=== PATIENT | male | born 1955 | race Caucasian/White ===

== ENCOUNTER 2016-10-30 05:17 | Inpatient (IN) | payer BC ==
[2016-10-22 17:31] LABS: HEMATOCRIT 37.2 % (40.0-51.0); HEMOGLOBIN 12.5 g/dL (13.6-17.8)
[2016-10-22 17:42] LABS: CALCIUM, SERUM 8.8 MG/DL (8.5-10.4); CHLORIDE, SERUM 103 MMOL/L (96-112); CO2 (CARBON DIOXIDE) 26 MMOL/L (24-34); CREATININE 1.08 MG/DL (0.70-1.30); GFR AFRICAN AMERICAN 86 ML/MIN (>=60); GFR NON AFRICAN AMERICAN 74 ML/MIN (>=60); GLUCOSE, SERUM 107 MG/DL (60-99); POTASSIUM, SERUM 3.6 MMOL/L (3.5-5.3); SODIUM, SERUM 137 MMOL/L (135-148)
[2016-10-22 17:44] LABS: BUN (BLOOD UREA NITROGEN) 26 MG/DL (6-23)
[2016-10-22 18:01] LABS: ASCORBIC ACID (UR NOT ORDER) NEG (NEG); BILIRUBIN, URINE NEGATIVE (NEG); KETONE, URINE NEGATIVE (NEG); LEUKOCYTE ESTERASE(NOT OR TRACE (NEG); WBC (NOT ORDERED) (RFLEX) 11 (0-5)
--- NOTE | ~2016-10-30 | OP ---
Record Of Operation [facility] [address] [place]. [address] NAME: MOHAMUD ANTON : 57 STATUS : DIS IN PAT#: [id number] AGE: 61 ADM/REG DATE : 10/30/16 MR#: [id number] REPORT SERV DATE: 11/02/16 DICTATED BY: REILLY VERDE DATE: 10/31/16 REPORT STATUS : Draft TRANSCRIBED BY: MODL DATE: 10/31/16 DATE OF PROCEDURE: 10/30/2016 TITLE OF OPERATION: 1. Cystourethroscopy with removal of right ureteral stent. 2. Placement of 6 x 26 right ureteral stent. 3. Laparoscopic extensive lysis of adhesions. 4. Robotic extensive right ureterolysis. 5. Robotic removal of right ureteral stent. 6. Robotic psoas hitch and ureteral reimplantation with placement of 6 x 22 right ureteral stent. 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 INDICATIONS: Mr. Anton is a 61-year-old male with right hydronephrosis. He had a history of aortobifemoral grafts for vascular disease. The hydronephrosis is symptomatic, and he has a stent placed. He is here for relief of his obstruction of his right kidney. ANESTHESIA: General. COMPLICATIONS: None. IMPLANTS: 1. 16-Burundian Ralph catheter. 2. 6 x 22 right ureteral stent. 3. #10 YORDAN drain. SPECIMENS: None. NARRATIVE: The patient was brought to the operating room, identified by his wristband. General anesthesia was induced, and Ancef was given for preoperative antibiotics. He was placed in the dorsal lithotomy position and prepped and draped in sterile fashion. A 22- Burundian cystoscope was placed into his urethra and into his bladder. A 6 x 26 ureteral stent was seen emanating from his right ureteral orifice. It was grasped with a flexible grasper and removed. Next, a fresh 6 x 26 ureteral stent was placed into his right ureter under standard conditions over a Sensor wire, the proximal coil was in the renal pelvis, the distal coil was in the bladder. The scope was removed. A 16-Burundian Ralph catheter was placed into the bladder under sterile conditions. The patient was then unprepped and undraped. He was then re-prepped and redraped in sterile fashion. His abdomen was then insufflated to a pressure of 15 mmHg using a Veress needle. A 5 mm port was placed in the left upper quadrant under direct vision. The abdomen was inspected. There were extensive omental adhesions over the midline incision, through which he had his aortobifem graft. An 8 mm port was placed into the left upper quadrant as well for a second robotic port, and the 5 mm port was exchanged for an 8 mm port under direct vision. Next, using a camera and Record Of Operation [place] [id number] [facility] [place]. [address] NAME: MOHAMUD ANTON : 57 STATUS : DIS IN PAT#: [id number] AGE: 61 ADM/REG DATE : 10/30/16 MR#: [id number] REPORT SERV DATE: 11/02/16 DICTATED BY: REILLY VERDE DATE: 10/31/16 REPORT STATUS : Draft TRANSCRIBED BY: MARK DATE: 10/31/16 laparoscopic scissors, extensive lysis of adhesions was performed to relieve the omental adhesions on the midline and right side of the body. Once all of the adhesions had been taken down, which took approximately an hour, an 8 mm port was placed in the right upper quadrant for the third robotic port. An 8 mm port was placed in a supraumbilical position for the final robotic port. A 12 mm port was placed in the right lower quadrant as an administrative assistant data entry port. The patient was then placed in Trendelenburg, and the robot was docked. At this point, I mobilized the right colon off the sidewall on the white line of Toldt, exposing the retroperitoneum. The colon was reflected medially. Eventually, the ureter was seen coursing down medially and beneath a vascular graft. The normal course of the ureter was then identified distal to the graft. The ureter was identified and marked with a vessel loop on both sides of the graft. A very meticulous ureterolysis was then performed. The ureter was literally on top of one vascular graft and beneath another. This portion of the operation took several hours as there was high risk for injury to the vascular graft. Once the ureter had been maximally mobilized, it was determined that the ureter could not be freed from beneath the vascular graft. The ureter was transected on both sides, and each piece of the ureter was oversewn with a 4-0 Prolene suture on both sides. At this time, the ureter seemed too short to perform our primary reanastomosis. I also did not like the idea of having a ureteral anastomosis right below the vascular graft. At this time, I decided to perform a robotic psoas hitch and ureteral reimplantation. The bladder was dropped off the anterior abdominal wall with electrocautery. The peritoneal reflections of the bladder were taken down to the pedicles bilaterally. The bladder was then hitched to the right psoas muscle as there was no good psoas tendon with a 2-0 V-Loc suture in a running fashion. The ureter was fairly short as the transection site was at the pelvic brim. I was able to bring it to a suitable location for reimplantation. Peritoneal attachments of the bladder were left on the bladder and these were placed in between the anastomosis and the vascular graft to prevent any sort of urinary extravasation from injuring the graft. Next, the bladder was inflated with 300 mL of sterile water. A perpendicular cystotomy was made. The middle point of the cystotomy was then brought to the spatulated portion of the ureter with a 4-0 V Loc suture. The ureter was then reanastomosed to the bladder with two running 4-0 V-Loc sutures. A 6 x 22 ureteral stent was placed into the ureter, this was pushed up to the bladder robotically, and the distal coil was pushed into the bladder. Once the anastomosis had been complete, the remaining cystotomy was closed perpendicular to this initial orientation in two layers, the first layer with a 3-0 V-Loc was a mucosal layer, the second layer was a seromuscular layer using a 2-0 V-Loc. The bladder was then irrigated with 300 mL of sterile water, and there was no extravasation or leakage of fluid from the anastomosis. At this time, the robot was undocked. The administrative assistant data entry port was closed with a 0 Vicryl suture using Chun-Roney device. The robotic ports were sequentially removed. There were no specimens. The wounds were irrigated clear. The subcutaneous tissues were closed with a 3-0 Vicryl suture. The skin was closed with 4-0 Monocryl suture. Dermabond dressing was placed. A 16-Burundian Ralph catheter was placed. A #10 YORDAN drain was placed through the left lateral robotic port and sutured in place with a 2-0 silk suture. A TAP block was placed preoperatively. The patient was awoken from anesthesia and transferred to the recovery room in stable condition. There were no complications. [facility]/MODL Record Of Operation [place] [id number] [facility] [address] [place]. [address] NAME: MOHAMUD ANTON : 57 STATUS : DIS IN PAT#: [id number] AGE: 61 ADM/REG DATE : 10/30/16 MR#: [id number] REPORT SERV DATE: 11/02/16 DICTATED BY: REILLY VERDE DATE: 10/31/16 REPORT STATUS : Draft TRANSCRIBED BY: MODRene DATE: 10/31/16 Reilly Verde MD / [id number] CC: MD Danielle Cavazos M.D.
[~2016-10-30 05:17] MED LIST: ASAB PO; COQ-10200 MG PO; FLOMAX4 PO; LIPITOR20 PO; MUCINEX1200 MG PO; PAX20 PO; PRIN20 PO; PROSCAR5 PO
[2016-10-30 13:23] LABS: BASOPHILS 0.2 %; BASOPHILS ABSOLUTE 0.02 10/3/uL (0.0-0.16); EOSINOPHILS 0.1 %; EOSINOPHILS ABSOLUTE 0.01 10/3/uL (0.0-0.53); HEMATOCRIT 33.6 % (40.0-51.0); HEMOGLOBIN 11.3 g/dL (13.6-17.8); IMMATURE GRANULOCYTES 0.2 %; IMMATURE GRANULOCYTES ABSOLUTE 0.03 10/3/uL (0.0-0.11); LYMPHOCYTES 5.3 %; LYMPHOCYTES ABSOLUTE 0.68 10/3/uL (0.67-4.30); MANUAL DIFF NO %; MEAN CORPUS HGB CONC 33.6 g/dL (32.0-36.0); MEAN CORPUSCULAR HEMOGLOB 28.8 pg (26.0-34.0); MEAN CORPUSCULAR VOLUME 85.5 fL (80-100); MEAN PLATELET VOLUME 8.9 fL (9.2-13.0); MONOCYTES 3.6 %; MONOCYTES ABSOLUTE 0.46 10/3/uL (0.21-1.20); NEUTROPHILS 90.6 %; NEUTROPHILS ABSOLUTE 11.52 10/3/uL (2.02-8.40); PLATELET COUNT 270 10/3/uL (150-400); RBC DISTRIBUTION WIDTH 12.8 % (12.0-16.0); RED CELL COUNT 3.93 10/6/uL (4.7-6.1); WHITE BLOOD CELLS 12.7 10/3/uL (4.5-10.5)
[2016-10-30 13:39] LABS: BUN (BLOOD UREA NITROGEN) 18 MG/DL (6-23); CHLORIDE, SERUM 106 MMOL/L (96-112); CO2 (CARBON DIOXIDE) 26 MMOL/L (24-34); CREATININE 0.95 MG/DL (0.70-1.30); GFR AFRICAN AMERICAN 100 ML/MIN (>=60); GFR NON AFRICAN AMERICAN 87 ML/MIN (>=60); GLUCOSE, SERUM 160 MG/DL (60-99); POTASSIUM, SERUM 4.5 MMOL/L (3.5-5.3); SODIUM, SERUM 139 MMOL/L (135-148)
[2016-10-31 06:03] LABS: BASOPHILS 0.2 %; BASOPHILS ABSOLUTE 0.02 10/3/uL (0.0-0.16); EOSINOPHILS 0.2 %; EOSINOPHILS ABSOLUTE 0.02 10/3/uL (0.0-0.53); HEMATOCRIT 34.2 % (40.0-51.0); HEMOGLOBIN 11.3 g/dL (13.6-17.8); IMMATURE GRANULOCYTES 0.1 %; IMMATURE GRANULOCYTES ABSOLUTE 0.01 10/3/uL (0.0-0.11); LYMPHOCYTES 22.5 %; LYMPHOCYTES ABSOLUTE 2.13 10/3/uL (0.67-4.30); MEAN CORPUSCULAR HEMOGLOB 28.4 pg (26.0-34.0); MEAN CORPUSCULAR VOLUME 85.9 fL (80-100); MEAN PLATELET VOLUME 9.5 fL (9.2-13.0); MONOCYTES 11.4 %; MONOCYTES ABSOLUTE 1.08 10/3/uL (0.21-1.20); NEUTROPHILS 65.6 %; NEUTROPHILS ABSOLUTE 6.19 10/3/uL (2.02-8.40); PLATELET COUNT 315 10/3/uL (150-400); RBC DISTRIBUTION WIDTH 13.1 % (12.0-16.0); RED CELL COUNT 3.98 10/6/uL (4.7-6.1); WHITE BLOOD CELLS 9.5 10/3/uL (4.5-10.5)
[2016-10-31 06:05] LABS: MANUAL DIFF NO %
[2016-10-31 06:18] LABS: CALCIUM, SERUM 8.1 MG/DL (8.5-10.4); CHLORIDE, SERUM 109 MMOL/L (96-112); CO2 (CARBON DIOXIDE) 23 MMOL/L (24-34); CREATININE 0.77 MG/DL (0.70-1.30); GFR AFRICAN AMERICAN 114 ML/MIN (>=60); GFR NON AFRICAN AMERICAN 99 ML/MIN (>=60); POTASSIUM, SERUM 4.2 MMOL/L (3.5-5.3); SODIUM, SERUM 143 MMOL/L (135-148)
[2016-10-31 06:22] LABS: BUN (BLOOD UREA NITROGEN) 11 MG/DL (6-23); GLUCOSE, SERUM 127 MG/DL (60-99)
[2016-10-31] MEDS ORDERED: PCET PO (11:48)
[2016-10-31] MEDS ORDERED: DSS PO (11:48)
[2016-10-31] MEDS ORDERED: BACDS PO (11:49)
[2016-11-26] MEDS ORDERED: ACET500CAP PO (10:22)
[2016-11-26] MEDS ORDERED: ALKA-SELTZE4 PO (10:23)
== END 2016-10-31 12:22 | disposition home or self-care (01) | DRG 660 ==
LOC: SDC/OF 05:17 → PACU 13:03 → 4SO 14:24
PROVIDERS: Urology
PROC: 0T764DZ Dilation of Right Ureter with Intraluminal Device, Percutaneous Endoscopic Approach (ICD-10-PCS; principal; 2016-10-30 06:30)
PROC: 0DNK4ZZ Release Ascending Colon, Percutaneous Endoscopic Approach (ICD-10-PCS; principal; 2016-10-30 06:30)
PROC: 8E0W4CZ Robotic Assisted Procedure of Trunk Region, Percutaneous Endoscopic Approach (ICD-10-PCS; principal; 2016-10-30 06:30)
PROC: 0TN64ZZ Release Right Ureter, Percutaneous Endoscopic Approach (ICD-10-PCS; principal; 2016-10-30 06:30)
PROC: 0DNT4ZZ (ICD-10-PCS; principal; 2016-10-30 06:30)
PROC: 0TP98DZ Removal of Intraluminal Device from Ureter, Via Natural or Artificial Opening Endoscopic (ICD-10-PCS; principal; 2016-10-30 06:30)
PROC: 0T164ZB Bypass Right Ureter to Bladder, Percutaneous Endoscopic Approach (ICD-10-PCS; principal; 2016-10-30 06:30)
PROC: 0TP94DZ Removal of Intraluminal Device from Ureter, Percutaneous Endoscopic Approach (ICD-10-PCS; principal; 2016-10-30 06:30)
PROC: 0T768DZ Dilation of Right Ureter with Intraluminal Device, Via Natural or Artificial Opening Endoscopic (ICD-10-PCS; principal; 2016-10-30 06:30)
DX: N13.5 Crossing vessel and stricture of ureter without hydronephrosis (principal); N13.1 Hydronephrosis with ureteral stricture, not elsewhere classified; I10 Essential (primary) hypertension; K66.0 Peritoneal adhesions (postprocedural) (postinfection); I73.89 Other specified peripheral vascular diseases; E78.5 Hyperlipidemia, unspecified
CPT/HCPCS: 36415; 80048; 81001; 82570; 85014; 85018; 85025; 86850; 86900; 86901; 86920; 93005; A9270-GY; C2617; J0690; J1885; J2250; J2405; J2710; J2795; J3010

== ENCOUNTER 2016-12-02 08:09 | Day surgery (SDC) | payer BC, OTHER ==
--- NOTE | ~2016-12-02 | CN ---
Consultation Report [address] [place]. [address] NAME: MOHAMUD ANTON : 57 STATUS : [facility] PAT#: [id number] AGE: 61 ADM/REG DATE : 12/02/16 MR#: [id number] REPORT SERV DATE: 12/02/16 DICTATED BY: CATALINO TALLEY DATE: 12/02/16 REPORT STATUS : Draft TRANSCRIBED BY: MODL DATE: 12/02/16 CONSULTATION DATE OF CONSULTATION: Dear Dr. Danielle cMkinley: Thank you for requesting my opinion regarding evaluation and management of Mr. Mohamud Anton's left upper lobe lung nodules, and mediastinal lymphadenopathy. Mr. Anton is a pleasant 61-year-old gentleman with a significant past medical history of tobacco abuse, who developed left-sided shoulder pain since 08/2016. Intermittently, the pain became 7/10 and it does not stop unless he takes Karen-Swink. He states that the pain slightly radiates down to his left arm. He underwent subsequent chest x-ray and CT scan that demonstrated a large neoplastic-appearing mass in the left apex and mediastinal lymphadenopathy. The patient states that, he has mild shortness of breath at baseline, well localized to the chest, nonradiating with no significant alleviating or exacerbating factors. REVIEW OF SYSTEMS: A detailed 14-point review of systems was completed. Pertinent positives and negatives are listed above. PAST MEDICAL HISTORY: 1. Peripheral vascular disease. 2. Colonic polyps. 3. Hyperlipidemia. 4. Generalized anxiety disorder. 5. Benign essential hypertension. 6. Tobacco abuse. 7. Paresthesias. 8. Spontaneous ecchymosis. 9. Hypertension. 10.Benign prostatic hypertrophy with outflow obstruction. PAST SURGICAL HISTORY: 1. Colonoscopy. 2. Exploratory laparotomy. 3. Aorta bifem by Dr. Laureano in 2007. ALLERGIES: NO KNOWN DRUG ALLERGIES. HOME MEDICATIONS: Reviewed and located in the paper chart. SOCIAL HISTORY: The patient smoked two packs per day and quit in 2007. He smoked for approximately fifty years. He denies any significant alcohol or illicit drug abuse. Consultation Report [place] [id number] [place]. [address] NAME: MOHAMUD ANTON : 57 STATUS : [facility] PAT#: [id number] AGE: 61 ADM/REG DATE : 12/02/16 MR#: [id number] REPORT SERV DATE: 12/02/16 DICTATED BY: CATALINO TALLEY DATE: 12/02/16 REPORT STATUS : Draft TRANSCRIBED BY: MARK DATE: 12/02/16 FAMILY HISTORY: Cancer, coronary artery disease, and stroke, and mother had an unspecified congenital cystic kidney disorder. PHYSICAL EXAMINATION: VITAL SIGNS: Reviewed and located in the paper chart. GENERAL: No acute distress. Able to communicate in full paragraphs at a time. HEENT: Normocephalic, atraumatic. Pupils are equal, round, and reactive to light and accommodation. Posterior oropharynx is clear. NECK: No JVD. No LAD. Trachea midline. CARDIOVASCULAR: Regular rate and rhythm. S1 and S2 present. LUNGS: Clear to auscultation bilaterally. ABDOMEN: Nontender, nondistended. Soft. Positive bowel sounds. EXTREMITIES: No clubbing, cyanosis, or edema. SKIN: No new rashes, lesions, or ulcers. PSYCHIATRIC: Alert and oriented x3. Appropriate mood and affect. Appropriate insight and judgment. NEUROLOGIC: 5/5 strength in upper and lower extremities. Cranial nerves II through XII intact. Gait not tested. DTRs not performed. IMAGING: CT scan of the chest performed on 11/19/2016 was personally reviewed by me and I agree with the following interpretation. 1. 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 There is an adjacent nondisplaced healing fracture of the first left rib, this represents primary carcinoma of the lung until proven otherwise. There is associated interstitial tissue thickening extending from the mass in the left upper lobe, which could represent lymphangitic spread of tissue of tumor, in addition the metastatic necrotic adenopathy and aortic pulmonary window is highly suspicious for N2 disease. The patient also has a 1 cm nodule in the left upper chest posteriorly, 1.5 cm cavitary lesion in the posterior aspect of the left lower lobe, and a 5 mm contralateral lung lesion. 2. Centrilobular pulmonary emphysema. ASSESSMENT AND PLAN: Mr. Mohamud Anton is a pleasant 61-year-old gentleman with a significant past medical history of heavy tobacco abuse and peripheral vascular disease, who presents to [facility] with a history of left-sided shoulder discomfort and mild shortness of breath. The patient underwent a CT scan of the chest that demonstrated a large neoplastic process of the left apex as well as multiple lung nodules and mediastinal lymphadenopathy. The clinical and radiographic presentation is highly suspicious for advanced staged primary bronchogenic carcinoma. Other potential etiologies unlikely; however, an inflammatory process is possible. At this point, Mr. Anton does need a diagnostic procedure. We did discuss in detail potential options including CT-guided FNA, right EBUS and navigation bronchoscopy, and thoracic surgical biopsy. After careful discussion of the risks, benefits, and alternatives Consultation Report [place] [address] [place]. [address] NAME: MOHAMUD ANTON : 57 STATUS : [facility] PAT#: [id number] AGE: 61 ADM/REG DATE : 12/02/16 MR#: [id number] REPORT SERV DATE: 12/02/16 DICTATED BY: CATALINO TALLEY DATE: 12/02/16 REPORT STATUS : Draft TRANSCRIBED BY: MARK DATE: 12/02/16 to each of these procedures, we agreed to proceed forward with EBUS and navigation bronchoscopy. The patient is aware that the procedure is associated with potential life- threatening risks, including lung collapse, respiratory failure, and even . RECOMMENDATIONS: A summary of my recommendations are as follows: 1. Proceed with EBUS and navigation bronchoscopy. 2. Further recommendations to follow the operative findings. 3. Likely the patient will require an MRI of the brain with and without contrast, PET-CT scan, and medical oncology consultation with Dr. Reid Victor, and thoracic surgical consultation. Thank you for allowing me to participate in Mr. Anton's care. Sincerely, SARMAD/MARK Catalino Talley M.D. / [id number] CC: Sulma Mathews M.D.
--- NOTE | ~2016-12-02 | EGD ---
EGD REPORT [facility] [address] [place]. [address] NAME: MOHAMUD ANTON : 57 STATUS : REG [facility]#: [id number] AGE: 61 ADM/REG DATE : 12/02/16 MR#: [id number] REPORT SERV DATE: 12/02/16 DICTATED BY: HENRIETTA TALLEY DATE: 12/02/16 REPORT STATUS : Draft TRANSCRIBED BY: [facility] DATE: 12/02/16 Pulmonology Patient Name: Mohamud Anton Procedure Date: 12/02/2016 8:17 AM Date of : 1955 Attending MD: JULIAN TALLEY MD Procedure Date No Time: 12/02/2016 Procedure: EBUS/NAVIGATION BRONCHOSCOPY Indications: Left upper lobe mass Providers: JULIAN TALLEY MD Referring MD: LISA PRYOR MD Medicines: Lidocaine 2% 20 mL Complications: No immediate complications Procedure: Pre-Anesthesia Assessment: - A History and Physical has been performed. Patient meds and allergies have been reviewed. The risks and benefits of the procedure and the sedation options and risks were discussed with the patient. All questions were answered and informed consent was obtained. Patient identification and proposed procedure were verified prior to the procedure by the physician and the nurse in the pre-procedure area in the procedure room. Mental Status Examination: alert and oriented. Airway Examination: normal oropharyngeal airway. Respiratory Examination: clear to auscultation. CV Examination: normal and RRR, no murmurs, no S3 or S4. ASA Grade Assessment: III - A patient with severe systemic disease. After reviewing the risks and benefits, the patient was deemed in satisfactory condition to undergo the procedure. The anesthesia plan was to use general anesthesia. Immediately prior to administration of medications, the patient was re-assessed for adequacy to receive sedatives. The heart rate, respiratory rate, oxygen saturations, blood pressure, adequacy of pulmonary ventilation, and response to care were monitored throughout the procedure. The physical status of the patient was re-assessed after the procedure. - ASA Grade Assessment: III - A patient with severe systemic disease. the Bronchoscope was introduced through the mouth, via the endotracheal tube (the patient was intubated for the procedure) and advanced to the tracheobronchial tree. the BF [id number] was introduced through the mouth, via the endotracheal tube (the patient was intubated for the procedure) and advanced to the tracheobronchial tree. EGD REPORT [address] [address] NAME: MOHAMUD ANTON : 57 STATUS : [facility] PAT#: [id number] AGE: 61 ADM/REG DATE : 12/02/16 MR#: [id number] REPORT SERV DATE: 12/02/16 DICTATED BY: HENRIETTA TALLEY DATE: 12/02/16 REPORT STATUS : Draft TRANSCRIBED BY: [employer] DATE: 12/02/16 Findings: The endotracheal tube is in good position. The visualized portion of the trachea is of normal caliber. The zee is sharp. The tracheobronchial tree was examined to at least the first subsegmental level. Bronchial mucosa and anatomy are normal; there are no endobronchial lesions, and no secretions. EBUS TBNA of lymph node level 11R x 4 passes for cytology EBUS TBNA of lymph node level 4R x 4 passes for cytology EBUS TBNA of lymph node level 7 x 4 passes for cytology EBUS TBNA of lymph node level 4L x 7 passes for cytology Using SuperDimension Edge catheter 180, peripheral probe EBUS 17s, and fluoroscopy, I performed the following biopsies: JAMES lung mass transbronchial needle aspirates x 7 passes for cytology JAMES lung mass transbronchial brush biopsy x 1 pass for cytology JAMES lung mass transbronchial forcep biopsies x 7 passes for histopathology Bronchoalveolar lavage was performed in the left upper lobe of the lung and sent for routine cytology. 60 mL of fluid were instilled. 10 mL were returned. The return was blood-tinged and cellular. Impression: Rapid On-Site Evaluation (MJ): Preliminary cytology is POSITIVE for malignancy (final results are pending). Patient enrolled in the Lung Vision Trial. Recommendation: - Await test results. - Chest X-ray. - Follow up with referring physician. - Refer to/consult with Oncology. - Refer to/consult with Thoracic Surgery. Attending Participation: I personally performed the entire procedure. JULIAN TALLEY MD 12/02/2016 12:21 PM This report has been signed electronically. Number of Addenda: 0 Note Initiated On: 12/02/2016 8:17 AM [address] [place] [id number]
[~2016-12-02 08:09] MED LIST changes: +ACET500CAP PO; +ALKA-SELTZE4 PO; +BACDS PO; +DSS PO; +PCET PO
[2016-12-02 08:23] LABS: BASOPHILS 0.4 %; BASOPHILS ABSOLUTE 0.03 10/3/uL (0.0-0.16); EOSINOPHILS 2.3 %; EOSINOPHILS ABSOLUTE 0.18 10/3/uL (0.0-0.53); IMMATURE GRANULOCYTES 0.1 %; IMMATURE GRANULOCYTES ABSOLUTE 0.01 10/3/uL (0.0-0.11); LYMPHOCYTES 27.6 %; LYMPHOCYTES ABSOLUTE 2.21 10/3/uL (0.67-4.30); MEAN CORPUSCULAR VOLUME 84.7 fL (80-100); MONOCYTES 8.6 %; MONOCYTES ABSOLUTE 0.69 10/3/uL (0.21-1.20); NEUTROPHILS ABSOLUTE 4.88 10/3/uL (2.02-8.40); PLATELET COUNT 251 10/3/uL (150-400); RBC DISTRIBUTION WIDTH 13.5 % (12.0-16.0); RED CELL COUNT 4.65 10/6/uL (4.7-6.1)
[2016-12-02 08:24] LABS: HEMATOCRIT 39.4 % (40.0-51.0); MANUAL DIFF NO %
[2016-12-02 08:32] LABS: INTERNATIONAL NORMAL RATI 1.1 UNITS (-); PROTIME (NOT ORD) 13.8 SEC (12.0-14.5)
[2016-12-02 08:34] LABS: PARTIAL THROMBO TIME 24.6 SEC (22.5-37.2)
[2016-12-02 08:38] LABS: BUN (BLOOD UREA NITROGEN) 27 MG/DL (6-23); CALCIUM, SERUM 9.2 MG/DL (8.5-10.4); CHLORIDE, SERUM 107 MMOL/L (96-112); CO2 (CARBON DIOXIDE) 28 MMOL/L (24-34); CREATININE 1.12 MG/DL (0.70-1.30); GFR AFRICAN AMERICAN 82 ML/MIN (>=60); GFR NON AFRICAN AMERICAN 71 ML/MIN (>=60); GLUCOSE, SERUM 129 MG/DL (60-99); POTASSIUM, SERUM 4.5 MMOL/L (3.5-5.3); SODIUM, SERUM 141 MMOL/L (135-148)
== END 2016-12-02 15:13 | disposition home or self-care (01) ==
LOC: DMU 08:09
PROVIDERS: Anesthesiology; Internal Medicine
PROC: 07B74ZX Excision of Thorax Lymphatic, Percutaneous Endoscopic Approach, Diagnostic (ICD-10-PCS; principal; 2016-12-02 09:30)
PROC: 0B9G8ZX Drainage of Left Upper Lung Lobe, Via Natural or Artificial Opening Endoscopic, Diagnostic (ICD-10-PCS; 2016-12-02 09:30)
DX: C34.12 Malignant neoplasm of upper lobe, left bronchus or lung (principal); C77.1 Secondary and unspecified malignant neoplasm of intrathoracic lymph nodes; I10 Essential (primary) hypertension; I73.9 Peripheral vascular disease, unspecified; F41.9 Anxiety disorder, unspecified; F32.9 Major depressive disorder, single episode, unspecified; G25.81 Restless legs syndrome; M19.90 Unspecified osteoarthritis, unspecified site; K21.9 Gastro-esophageal reflux disease without esophagitis; N40.0 Benign prostatic hyperplasia without lower urinary tract symptoms; H91.90 Unspecified hearing loss, unspecified ear; Z95.820 Peripheral vascular angioplasty status with implants and grafts; Z79.82 Long term (current) use of aspirin; Z79.899 Other long term (current) drug therapy; Z87.891 Personal history of nicotine dependence; Z98.890 Other specified postprocedural states
CPT/HCPCS: 71010; 80048; 85025; 85610; 85730; 88112; 88172; 88173; 88305; 88333; 88341; 88342; A9270-GY; C1725; J2250; J2370; J2405; J2710; J3010